=== PATIENT | female | born 1985 | race Caucasian/White ===

== ENCOUNTER 2023-05-31 18:39 | Emergency (ER) | payer OTHER ==
[2023-05-31 19:02] VITALS: RESP 20; TEMP 97.2
--- NOTE | 2023-05-31 19:14 | ERPHSYRPT ---
- History of Present Illness Time Seen by Provider: 05/31/23 19:02 Source: patient Exam Limitations: no limitations Patient Subjective Stated Complaint: PT states "I suffer from migraines and I got a headache this morning it came on suddenly and it is the worst headache of my life." Triage Nursing Assessment: PT presented alert and oriented X 3, skin pwd. Pt ambulates with an upright steady gait, able to speak in clear full sentences. pt laying with eyes closed. Physician History: For the past 10 hours pt has had a sharp constant 10/10 in severity headache located in the right quaker and frontal areas with nausea & vomiting x3 without blood; LBM was today & wnl. Allergies/Adverse Reactions: cefaclor [From [employer]] Allergy (Severe, Verified 05/31/23 19:02) purpura Home Medications: Escitalopram Oxalate [Lexapro] 10 mg PO DAILY 05/31/23 [History] Phentermine HCl [Adipex-P] 37.5 mg PO DAILY 05/31/23 [History] Propranolol HCl 60 mg PO BID 05/31/23 [History] Rimegepant Sulfate [Nurtec Odt] 75 mg PO DAILY 05/31/23 [History] Hx Tetanus, Diphtheria Vaccination/Date Given: No Hx Influenza Vaccination/Date Given: Yes Hx Pneumococcal Vaccination/Date Given: No Immunizations Up to Date: No Travel Risk - International Travel Have you traveled outside of the country in past 3 weeks: No - Coronavirus Screening Are you exhibiting any of the following symptoms?: No Close contact with a COVID-19 positive Pt in past 14-21 Days: No - Vaccine Status Have you recieved a Covid-19 vaccination: Yes Checkroom Attendant: Unknown - Vaccination Dates Dates if Unknown: 2020 - Review of Systems Constitutional: No Fever, No Chills Ears, Nose, & Throat: No Ear Pain, No Throat Pain Respiratory: No Cough, No Dyspnea Cardiac: No Chest Pain Abdominal/Gastrointestinal: Nausea, Vomiting, No Abdominal Pain, No Diarrhea Neurological: Headache, No Focal Weakness, No Sensory Changes - Past Medical History Neurological History: Migraines ENT History: No Pertinent History Cardiac History: No Pertinent History Respiratory History: No Pertinent History Endocrine Medical History: No Pertinent History Musculoskeletal History: No Pertinent History GI Medical History: No Pertinent History History: No Pertinent History Psycho-Social History: Anxiety, Depression Female Reproductive Disorders: No Pertinent History - Past Surgical History Past Surgical History: Yes Other Surgical History: c section x 2. tubal. ablasion - Social History Smoking Status: Never smoker Exposure to second hand smoke: Yes Drug Use: none Patient Lives Alone: No - Female History Hx Last Menstrual Period: ablasion Hx Now: No - Nursing Vital Signs Nursing Vital Signs: Initial Vital Signs Temperature 97.2 F 05/31/23 18:54 Pulse Rate 90 05/31/23 18:54 Respiratory Rate 20 05/31/23 18:54 Blood Pressure 158/98 05/31/23 18:54 O2 Sat by Pulse Oximetry 98 05/31/23 18:54 Pain Scale Pain Intensity 8 - Physical Exam General Appearance: alert Eye Exam: PERRL/EOMI Ears, Nose, Throat Exam: TMs normal, pharynx normal, moist mucous membranes Neck Exam: normal inspection Respiratory Exam: normal breath sounds Cardiovascular Exam: normal heart sounds Gastrointestinal/Abdominal Exam: normal bowel sounds Back Exam: normal inspection Extremity Exam: normal inspection 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, 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 Exam: normal hearing, normal speech, PERRL Motor/Sensory Exam: no motor deficit, no sensory deficit Skin Exam: warm, dry SpO2 Interpretation: normal SpO2: 98 O2 Delivery: Room Air - Course Nursing assessment & vital signs reviewed: Yes - CT Exams Head CT Interpretation: Tele-radiologist Report (Unremarkable) Ordered Tests: Active Orders 24 hr Category Date Time Status HEAD WITHOUT CONTRAST [CT] Stat Exams 05/31/23 19:15 Completed Medication Summary Discontinued Medications Generic Name Dose Route Start Last Admin Trade Name Arlette PRN Reason Stop Dose Admin Morphine Sulfate 4 mg 05/31/23 19:14 05/31/23 19:23 Morphine Sulfate 4 Mg/Ml Injection IM 05/31/23 19:15 4 mg STAT ONE Administration Morphine Sulfate Confirm 05/31/23 19:21 Morphine Sulfate 4 Mg/Ml Injection Administered 05/31/23 19:22 Dose 4 mg .ROUTE .STK-MED ONE Ondansetron HCl 4 mg 05/31/23 19:14 05/31/23 19:22 Zofran 4 Mg/Udtablet Orally Disintegrating PO 05/31/23 19:15 4 mg STAT ONE Administration Ondansetron HCl Confirm 05/31/23 19:21 Zofran 4 Mg/Udtablet Orally Disintegrating Administered 05/31/23 19:22 Dose 4 mg .ROUTE .STK-MED ONE - Progress Progress: improved Counseled pt/family regarding: need for follow-up, rad results Medical Desision Making - Diagnostic Testing Diagnostic test were ordered, analyzed, and reviewed by me: Yes Radiological Interpretation: Teleradiologist Report - Departure Departure Disposition: Home Clinical Impression: Headache Condition: Stable Critical Care Time: No Referrals: RALPH RIVERA NP [Primary Care Provider] - Follow up/PCP as directed Instructions: Headache, Adult (DC) Additional Instructions: Follow up with private doctor tomorrow. Forms: Work/School Release Form
[2023-05-31] MEDS ORDERED: MORPHINE SULFATE 4 MG INJ ONE ×2 (19:21→21:34)
[2023-05-31] MEDS ORDERED: ZOFRAN ODT 4 MG ONE (19:21)
[2023-05-31] MEDS: ZOFRAN ODT 4 MG PO ONE (19:22)
[2023-05-31] MEDS: MORPHINE SULFATE 4 MG INJ IM ONE ×2 (19:23→21:36)
--- NOTE | 2023-05-31 20:47 | XRAY ---
CLINICAL HISTORY: headache TECHNIQUE: Axial non-contrast CT scan of the brain was performed from the skull base to the high parietal region. COMPARISON: None. FINDINGS: No evidence of acute intracranial hemorrhage or major vascular territory infarct. The cortical sulci, fissures, basal cisterns, and ventricles are normal in size and configuration. Le-white matter differentiation is maintained. No midline shifts or deformity. Normal CT appearance of the posterior fossa structures namely the cerebellar hemispheres, brainstem and cerebellar peduncles. The IACs are unremarkable. The cerebello-pontine angles are clear. The osseous structures in the skull base are unremarkable. No definite calvarium fractures. The scanned paranasal sinuses are clear. IMPRESSION: Unremarkable CT scan of the brain Electronically Signed by: Tal Jordan MD. (05/31/2023 20:42:41 EST)
[2023-05-31 22:04] VITALS: BP 144/90; PULSE 74; O2SAT 97
== END 2023-05-31 22:20 | disposition home or self-care (01) ==
LOC: ED 18:39
DX: R51.9 Headache, unspecified (principal); R11.2 Nausea with vomiting, unspecified; Z20.828 Contact with and (suspected) exposure to other viral communicable diseases
CPT/HCPCS: 70450; 96372; 99284; J2270; Q0162